=== PATIENT | male | born 1980 | race Caucasian/White ===

== ENCOUNTER 2017-04-06 12:58 | Emergency (ER) | payer OTHER ==
[~2017-04-06] VITALS: Ht 180.3 cm; Wt 86.4 kg
[2017-04-06 13:10] VITALS: BP 115/83; PULSE 120; RESP 16; O2SAT 100
--- NOTE | 2017-04-06 15:13 | ED.REPORT ---
HPI-Psychiatric Illness Date of Service Apr 06, 2017 ED Provider: Stella Herrera MD Patient is a 36 year old male with a hx of narcotic addiction, tremors, polysubstance abuse, and suicide attempts who presents to the ED in company of his sister with paranoia for the past 9 months. He repeatedly states, "everything I do is rigged." He does not have any previous psychiatric diagnosis but has been seen at [facility] and was detained once before. He has seen a psychiatrist in [place] but states "no one is concerned with what I believe, they are just concerned about my anger." He reports feelings of hopelessness and anger. He states, "I get very angry and have a hard time controlling that anger. I believe everyone I know has lied to me my whole life. I believe everyone knows who I am when I go places. I believe I was supposed to be homeless so I could prove I could rise above it." Other statements from the patient include: "My is holding my kids from me and I believe she is the spawn of satin", "they are sadistic and like to see me in pain", "people burn incense by me, people pray by me", "I wanna see why the group captain won't do anything to me", and "No matter what you tell me, I know in my heart that it's real." Per sister, this morning he was tearful and wanting to kill himself. Over the past few months he has also had homicidal ideations and made violent threats to "take out" his family. His daily medications currently prescribed by Dr. Janis Johnson are divalproex 500mg once a night, amitriptyline 25mg once a day, and venlafaxine 225mg once a day. He has stopped taking his medications. He has tried Seroquel (100mg 3x a day) previously. He has been sober for 6 mo from alcohol and drugs. He does not have a good support system. Per sister, the family is living in fear of the patient due to his violent tenancies. Nursing Notes Stated Complaint: THOUGHTS OF HURTING SELF Chief Complaint: Psychiatric Complaint Nursing Notes Reviewed: Yes Allergies: Coded Allergies: tramadol (Verified Adverse Reaction, Severe, seizure, 04/06/17) Scheduled Divalproex (Divalproex) 500 Mg Tablet.dr 500 MG PO BID 1 in am, 2 at night Swallowed whole without chewing to avoid local irritation of the mouth and throat. Quetiapine Fumarate (Seroquel) 300 Mg Tablet 300 MG PO HS Venlafaxine ER (Venlafaxine ER) 225 Mg Tab.er.24 225 MG PO DAILY General Time Seen by MD: 14:01 Chief Complaint Other (Delusions) Hx Obtained From: Patient Onset Occurred: Onset unknown Symptom Duration: Since onset Similar Sx Previous: Yes Risk-Psychiatric Illness Suicide Risk Stratification RF Statements: Risk factors reviewed Review of Systems Constitutional: Denies: Chills, Fever, Malaise, Weakness - generalized Psychiatric: Reports: Agitation, Delusional, Stress, Denies: Hallucinations, auditory, Hallucinations, visual, Homicidal ideation , Suicidal ideation Complete sys rev & neg: except as marked. Physical Exam Initial Vital Signs Vital Signs (First) Date Time Temp Pulse Resp B/P Pulse Ox O2 Delivery O2 Flow Rate FiO2 04/06/17 13:10 37.2 120 16 115/83 100 Room Air Initial VS: Reviewed ENT: Mucous membranes moist, Conjunctiva normal, No scleral icterus Neck: Supple, Non-tender, Full range of motion Respiratory: Breath sounds normal, Clear to auscultation, No respiratory distress Cardiovascular: Regular rate & rhythm, Heart sounds normal, Intact distal pulses Abdomen / GI: Soft, Non-tender, No guarding, No rebound, No distention Skin: Warm, Dry, No cyanosis General/Constitutional: Awake, Alert Neurologic: Oriented X3, No sensory deficits Abnormal Mood/Affect: Positive: Pressured speech Abnormal Thinking / Perception: Positive: Delusions - grandeur Good eye contact Delusions of persecution Interpretation & Diagnostics Lab Results Interpretation Result Diagram: 04/06/17 1525 04/06/17 1525 Test 04/06/17 15:25 White Blood Count 5.3th/mm3 (3.8-10.1) Red Blood Count 4.89mil/mm3 (4.40-5.80) Hemoglobin 13.1g/dL (13.8-17.2) Hematocrit 40.3% (41.0-50.0) Mean Corpuscular Volume 82.4fL (81-100) Mean Corpuscular Hemoglobin 26.8pg (27.0-35.0) Mean Corpuscular Hemoglobin Concent 32.5% (32.0-37.0) Red Cell Distribution Width 13.5% (12.3-15.4) Platelet Count 306bil/L (150-400) Neutrophils (%) (Auto) 63.2% (40-74) Lymphocytes (%) (Auto) 23.0% (14-46) Monocytes (%) (Auto) 6.2% (4-12) Eosinophils (%) (Auto) 6.9% (0-5) Basophils (%) (Auto) 0.7% (0-3) Sodium Level 142mEq/L (134-144) Potassium Level 4.3mEq/L (3.5-5.2) Chloride Level 104mEq/L (97-108) Carbon Dioxide Level 25mmol/L (18-29) Blood Urea Nitrogen 13mg/dL (6-20) Creatinine 0.93mg/dL (0.76-1.27) Estimat Glomerular Filtration Rate 97mL/min (>59) Glucose Level 94mg/dL (60-99) Calcium Level 9.5mg/dL (8.5-10.1) Total Bilirubin 0.2mg/dL (0.0-1.2) Aspartate Amino Transf (AST/SGOT) 23U/L (0-50) Alanine Aminotransferase (ALT/SGPT) 16U/L (0-44) Alkaline Phosphatase 91U/L (25-150) Total Protein 7.6g/dL (6.4-8.4) Albumin 4.4g/dL (3.4-5.0) Thyroid Stimulating Hormone (TSH) 2.180uIU/mL (0.450-4.500) Hold Jacobo Top Tube Received (Received) Re-Eval/Medical Decision Med Decision/Clinical Course Medications and care discussed with Dr. Rufina Phipps See discharge instructions for decisions made with medication changes. All reviewed with Anil. He is more than agreeable to try this. Excited to keep his [facility] appointment tomorrow. Care plan is agreeable for both he and his sister today. Both feel safe to go home. Medications as described in the discharge are given tonight and prescriptions for a month with the refill are given and knowing that he will be following up with [facility] Source of Hx: Old records Re-Evaluation/Progress #1: Time of Eval: 17:25 Re-Evaluation/Progress Note: Pt is rechecked. He remains stable and agrees to wait in the ED until we are able to locate a more permant place for him to be transported to. Re-Evaluation/Progress #2: Time of Eval: 18:03 Re-Evaluation/Progress Note: Pt is rechecked after consult with [facility]. He is agreeable with the plan to discharge him at this time. All questions are addressed. Counseled Regarding: Diagnosis, Lab results, When/why to return to ED Discharge & Departure Impression: Primary Impression: Bipolar disorder with psychotic features Disposition: Home Discharge Condition All VS Reviewed: Yes Condition: Stable Additional Instructions: you have an appt at 3pm at the [facility] tomorrow Call [phone] to find out the name of your provider tomorrow (or just show up at 3pm). After talking with our psychiatrist, Dr Degroot, we are going to make some adjustments to your medications: CHANGE valproic acid, increase to 500mg in the am and 1000mg at night effexor, continue at 225mg daily STOP the amitriptaline START Seroquel 300mg at night Please keep your appointments and make sure you follow through on details you need to keep your insurance. I hope you feel better. Prescriptions have been electronically sent to [facility] in [place] for you Referrals: [facility] Aron Attestation Portions of this note were transcribed by Thu Hill. I, Dr. Herrera personally performed the history, physical exam and medical decision-making; I reviewed and confirmed the accuracy of the information in the transcribed note. Signed by: Aron Maxwell, 04/06/2017 [Time] copies to: [facility] ; [facility] Stella Herrera MD Apr 06, 2017 15:13 TYSON COREA Apr 06, 2017 15:[address] Apr 06, 2017 15:34
[2017-04-06] MEDS ORDERED: OLANZapine Zydis ODT 5 mg Tablet PO ONE (15:20)
[2017-04-06 15:33] LABS: BASOPHILS % (AUTO) 0.7 % (0-3); EOSINOPHILS % (AUTO) 6.9 % (0-5); MONOCYTES % (AUTO) 6.2 % (4-12); Mean Corpuscular Hemoglobin 26.8 pg (27.0-35.0); Mean Corpuscular Volume 82.4 fL (81-100); NEUTROPHILS % (AUTO) 63.2 % (40-74); Platelet Count 306 bil/L (150-400)
[2017-04-06] MEDS ORDERED: QUET300T PO (17:57)
[2017-04-06] MEDS ORDERED: VENL225T3 PO (17:57)
[2017-04-06] MEDS ORDERED: DIVA500T6 PO (17:57)
[2017-04-06 18:16] VITALS: BP 131/62; PULSE 78; RESP 16; O2SAT 97
== END 2017-04-06 18:17 | disposition home or self-care (01) ==
LOC: SED 12:58
DX: F31.5 Bipolar disorder, current episode depressed, severe, with psychotic features (principal); R45.850 Homicidal ideations; Z91.5 Personal history of self-harm; Z88.5 Allergy status to narcotic agent

== ENCOUNTER 2017-04-15 09:44 | Inpatient (IN) | payer MEDICAID, OTHER ==
[~2017-04-15] VITALS: Ht 182.9 cm; Wt 88.6 kg
[~2017-04-15 09:44] MED LIST: DIVA500T6 PO; QUET300T PO; VENL225T3 PO
[2017-04-15 09:50] VITALS: BP 119/80; PULSE 93; RESP 14; O2SAT 100
--- NOTE | 2017-04-15 10:06 | ED.REPORT ---
HPI-Psychiatric Illness Date of Service Apr 15, 2017 ED Provider: Garth Bills DO Patient is a 36 year old male with a hx of narcotic addiction, tremors, polysubstance abuse, and suicide attempts who presents to the ED with his mother stating that the medications he was put on at his ED visit a week ago are not helping and he is now hopeless. He states, "apparently I'm crazy and I' ve lost all hope", "I even think it's very delusional. It's delusions of grandeur, that cars are following me, this has been going on for about 7 months. About 7 months ago my life lucas fell apart", and "I don't believe there is a magic pill that will make me all better so I have no desire to be alive." He reports that he stopped taking Seroquel because it gave his restless legs. He has not been sleeping the last 2 days. He denies active suicidal ideation, homicidal ideation, or any other symptoms. He was seen 9 days ago in the ED and diagnosed with bipolar disorder with psychotic features. His medications were changed as follows: Increase Valproic acid to 500mg am and 1000mg at night, continue Effexor 225mg daily, stop amitriptyline, and start Seroquel 300mg at night. Nursing Notes Stated Complaint: MENTAL HEALTH EVAL Chief Complaint: Psychiatric Complaint Nursing Notes Reviewed: Yes Allergies: Coded Allergies: tramadol (Verified Adverse Reaction, Severe, seizure, 04/06/17) Scheduled Divalproex (Divalproex) 500 Mg Tablet.dr 500 MG PO BID 1 in am, 2 at night Swallowed whole without chewing to avoid local irritation of the mouth and throat. Quetiapine Fumarate (Seroquel) 300 Mg Tablet 300 MG PO HS Venlafaxine ER (Venlafaxine ER) 225 Mg Tab.er.24 225 MG PO DAILY General Time Seen by MD: 09:59 Chief Complaint Suicidal ideation Hx Obtained From: Patient Arrived By: Walk-in Onset Occurred: More than a week ago... Severity: Current: No pain currently Severity: Maximum: No pain Recent Healthcare: Recent doctor visit Similar Sx Previous: Yes Risk-Psychiatric Illness Suicide Risk Stratification Suicide Risk Factors - Adult: : Access to firearms: Previous attempt: Substance abuse RF Statements: Risk factors reviewed Past Medical History Past Medical History Anrcotic addiciton tremors polysubstance abuse suicide attempts Past Surgical History 2 hernia repairs brain tumor removal Smoking History Unknown if Ever Smoker Social History Alcohol Use: In recovery Drug Use: In recovery Other Social History: Smokeless tobacco, Poor social support Ambulatory Status Independent Review of Systems Psychiatric: Reports: Delusional, Depression (and hopelessness ), Insomnia, Denies: Homicidal ideation, Suicidal ideation Complete sys rev & neg: except as marked. Physical Exam Initial Vital Signs Vital Signs (First) Date Time Temp Pulse Resp B/P Pulse Ox O2 Delivery O2 Flow Rate FiO2 04/15/17 09:50 36.9 93 14 119/80 100 Room Air Initial VS: Reviewed, Vital signs normal Head / Eyes: Atraumatic, Normocephalic Neck: Full range of motion Respiratory: Breath sounds normal, Clear to auscultation, No respiratory distress Cardiovascular: Regular rate & rhythm, Heart sounds normal, Intact distal pulses Abdomen / GI: Soft, Non-tender Skin: Warm, Dry General/Constitutional: Awake, Alert, No acute distress Neurologic: Oriented X3, Speech NL Abnormal Mood/Affect: Positive: Pressured speech Abnormal Thinking / Perception: Positive: Delusions - grandeur Good eye contact anhedonia, hopeless Interpretation & Diagnostics Lab Results Interpretation Result Diagram: 04/15/17 1030 04/15/17 1030 Test 04/15/17 10:30 White Blood Count 6.8th/mm3 (3.8-10.1) Red Blood Count 4.98mil/mm3 (4.40-5.80) Hemoglobin 13.1g/dL (13.8-17.2) Hematocrit 40.4% (41.0-50.0) Mean Corpuscular Volume 81.1fL (81-100) Mean Corpuscular Hemoglobin 26.3pg (27.0-35.0) Mean Corpuscular Hemoglobin Concent 32.4% (32.0-37.0) Red Cell Distribution Width 14.3% (12.3-15.4) Platelet Count 253bil/L (150-400) Neutrophils (%) (Auto) 75.8% (40-74) Lymphocytes (%) (Auto) 12.4% (14-46) Monocytes (%) (Auto) 7.5% (4-12) Eosinophils (%) (Auto) 4.0% (0-5) Basophils (%) (Auto) 0.3% (0-3) Sodium Level 141mEq/L (134-144) Potassium Level 4.0mEq/L (3.5-5.2) Chloride Level 101mEq/L (97-108) Carbon Dioxide Level 25mmol/L (18-29) Blood Urea Nitrogen 8mg/dL (6-20) Creatinine 1.03mg/dL (0.76-1.27) Estimat Glomerular Filtration Rate 86mL/min (>59) Glucose Level 110mg/dL (60-99) Calcium Level 9.4mg/dL (8.5-10.1) Total Bilirubin 0.2mg/dL (0.0-1.2) Aspartate Amino Transf (AST/SGOT) 24U/L (0-50) Alanine Aminotransferase (ALT/SGPT) 15U/L (0-44) Alkaline Phosphatase 69U/L (25-150) Total Protein 7.3g/dL (6.4-8.4) Albumin 4.4g/dL (3.4-5.0) Thyroid Stimulating Hormone (TSH) 2.450uIU/mL (0.450-4.500) Hold Jacobo Top Tube Received (Received) Re-Eval/Medical Decision Med Decision/Clinical Course Patient is a good candidate for voluntary admission. Currently awaiting placement. Consultation : Consulted With: cathead worker Call Returned at: 13:08 Can Maker: Will see patient, Agrees with eval, Agrees with plan Note: Discussed pt's case with social work. Agrees hospitalization is appropriate. Will look for bed for pt. Discharge & Departure Shift Change Sign-Out Patient Care Transferred: Yes Discussed Complaint(s): Yes Additonal Information: Transfer of care to Dr. Del Valle at 1500 Impression: Primary Impression: Psychosis Psychosis type: unspecified psychosis type Qualified Code: F29 - Unspecified psychosis not due to a substance or known physiological condition Discharge Condition All VS Reviewed: Yes Condition: Stable Referrals: OTHER,PHYSICIAN (PCP) (Family) Care Transferred to: Dr. Del Valle Care Transferred at: 15:00 Scribe Attestation Portions of this note were transcribed by Tyson Corea. I, Dr. Bills personally performed the history, physical exam and medical decision-making; I reviewed and confirmed the accuracy of the information in the transcribed note. Signed by: Aron Mathis, 04/15/17 Garth Bills DO Apr 15, 2017 10:06 TYSON COREA Apr 15, 2017 10:17
[2017-04-15 10:41] LABS: BASOPHILS % (AUTO) 0.3 % (0-3); MONOCYTES % (AUTO) 7.5 % (4-12); Mean Corpuscular Hemoglobin 26.3 pg (27.0-35.0); Mean Corpuscular Volume 81.1 fL (81-100); NEUTROPHILS % (AUTO) 75.8 % (40-74); Platelet Count 253 bil/L (150-400)
[2017-04-15 13:53] VITALS: BP 117/86; PULSE 120
[2017-04-15 18:06] VITALS: BP 116/79; PULSE 90; RESP 18; O2SAT 100
[2017-04-15 22:43] VITALS: BP 100/68; PULSE 85; RESP 16; O2SAT 98
[2017-04-15 23:07] VITALS: BP 100/68; PULSE 85; RESP 16; O2SAT 98
[2017-04-16] MEDS ORDERED: Magnesium Hydroxide 10 mL Oral Concentration PO PRN (00:15)
[2017-04-16] MEDS ORDERED: Alum-Mag Hydrox-Simeth 30 mL Suspension PO PRN (00:15)
[2017-04-16] MEDS ORDERED: Benzocaine-Menthol Lozenge 2/Pkg PO PRN (00:15)
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
[2017-04-16 01:56] VITALS: BP 100/66; PULSE 83; RESP 16
--- NOTE | 2017-04-16 14:06 | HP ---
[address] [address] HISTORY AND PHYSICAL PATIENT: CHELSI MCMAHON : 1980 MR#: [id number] ADMIT: 04/15/2017 JOB ID: [id number] IDENTIFICATION OF PATIENT: The patient is a 36-year-old male who reportedly was admitted on a voluntary basis through the emergency department after significant concern of increasing difficulties with delusions, paranoia, and significant concern of recent emotional breakdown. The patient reportedly identified significant thoughts of suicide with a plan of purchasing a weapon. CHIEF COMPLAINT: "I don't think that I could never do it, I don't want to do anything that would hurt my kids or myself." HISTORY OF PRESENT ILLNESS: As stated above, the patient is a 36-year-old male who reportedly has been seen x2 in the emergency department within the past week. The patient initially presented with significant concerns of possible features of bipolar disorder including evidence of insomnia, racing thoughts, delusions of grandeur, and significant difficulties with rapid mood swings. There was open identification of previous hospitalization at [facility] for less than 24 hours with previous detainment. The patient reports that it essentially was hell and that he was glad that he was discharged quickly. He does report that recently through the emergency department interventions provided by Dr. Louis and Dr. Bills consultation was obtained by Dr. Degroot with consideration of introductions of Depakote currently dispensed at 500 mg q.a.m. and 1000 mg q.h.s. He reportedly had also been prescribed doses of Effexor prior at 225 mg daily by his family practitioner and is in the process of taper with the intent to discontinue. He was also previously on doses of amitriptyline which has been discontinued as well. Dr. Degroot had recommended within the past 48 hours introduction of Seroquel due to significant difficulties with insomnia, however the patient states that he elected to discontinue due to restless legs. In reviewing his current status he indicates that he is on a waiting list to be seen at [facility] in [place] and has seen a therapist x2. He reports that he is questioning the diagnosis of bipolar disorder and stated that he believed that may be a potential but he is concerned about the diagnosis. He reports no previous history of ben, no evidence of prolonged mood swing variation, and indicates that much of his anger and difficulties with low mood at this time are related to his current life predicaments. He indicates that he has lost his job, his previous vehicle, and also is undergoing a process of separation and divorce. He indicates that he does have an apartment dwelling at this time and that his rent has been paid very by his own parents, who have financial capability. He indicates that unfortunately they are drawing limits due to his significant history of difficulties with substance abuse. The patient readily identified that he is clean and sober for approximately seven months with prior history of usage of methamphetamine. The patient states that he had used daily for about a month within the past eight months after feeling overwhelmed with life situations. He indicated that his was previously using substances and that he had taken care of the three- and [id number] and moved out of the home environment at that time. He indicates that he essentially feels that he became overwhelmed with the responsibility and began using substances on himself. He also identifies a significant previous history of narcotic addiction after he underwent a brain surgery with removal of a tumor, a melangioma, and stated that he developed difficulties with chronic pain and was seen through a pain clinic in [place]. He indicates that at one point he was transitioned onto doses of Suboxone for approximately five years but states that he essentially was abusing substances and the prescriptions noted. He gave several references of a physician that is no longer allowed to practice in the [facility] who evidently would call the patient on his personal home phone at 2:00 in the morning just to check in on him. He denies any previous enrollment in chemical dependency treatment and indicates that he tends to rely upon his own deloris and gnosticism, which is a methodist Confucianism based gnosticism, [facility] in [place]. He indicated he indicated further that he has never gone through deloris based treatment through [facility]. In reviewing his previous history of substances he did readily identify that as a youth he was using substances including marijuana, mescaline, LSD, cocaine, and alcohol. He reports that he essentially discontinued usage of substances and later transitioned onto the prescription agents when he was connected with the Pain Clinic. PAST MEDICAL HISTORY: SUBSTANTIAL FOR ALLERGIES TO TRAMADOL. CURRENT MEDICATIONS: Include Depakote 500 mg q.a.m. and 1000 mg q.h.s., Effexor 225 mg daily. PAST MEDICAL HISTORY: He denies any recent surgeries, fracture, or head trauma. Other medical history was reviewed through the ER. I agree with findings. PAST PSYCHIATRIC HISTORY: Limited to the above. He is on a waiting list to be seen by a prescriber at [facility]. SOCIAL HISTORY: Currently the patient lives in his own apartment in [place]. He is in the process of separation and divorce to be finalized at the end of this month. He has two children, ages three and one. He is currently unemployed. He reportedly graduated from high school in [place] and attended community college with no degree. FAMILY HISTORY: Deferred. DEVELOPMENTAL HISTORY: As noted above. MENTAL STATUS EXAMINATION: General appearance: The patient is cooperative, polite. He is very dramatic in his presentation. He smiles appropriately throughout the course of conversation, becomes tearful in discussing his current process of life. His speech is mildly pressured. His mood is depressed, with anxious features. His affect is elevated. His thought process shows evidence of some racing thoughts, loose and disconnected thinking at times, but redirectable. His thought content: He denied any evidence of current suicidal ideation, but admitted prior to hospitalization he was having thoughts about cashing in his check for unemployment and purchasing a gun. He denies any homicidal variant. There was no evidence of active hallucinations or delusions. His mental grasp: He was alert. Oriented to person, place, and time. His attention and concentration intact. Insight and judgment are fair. He does have evidence of paranoia and some concerns of elevated grandiose presentation. IMPRESSION: Palco I: 1. Mood disorder, not otherwise specified. 2. Methamphetamine use disorder, in remission. 3. Generalized anxiety disorder. 4. Rule out major depressive disorder, recurrent type, nonpsychotic. Palco II: Cluster A personality features. Palco III: 1. History of melangioma 2. History of chronic pain. 3. History of osteoporosis with repeated treatment and resolution. Palco IV: Stressors are noted for current pending divorce, unemployment, transition of life. Palco V: Global Assessment of Functioning of current 25. PLAN: 1. Recommendations for continuation of hospitalization. The patient was informed that if he were to attempt to leave the hospital DCRs would be notified and we would more than likely have to pursue CARON status. 2. Recommendations for taper and discontinuation of Effexor by dropping to 75 mg daily for the next five days and then discontinue thereafter. 3. Continuation of Depakote 500 mg q.a.m. and 1000 mg q.h.s. with Depakote level to be drawn tomorrow morning. 4. Recommendations for introduction of Vistaril 50 mg q.4 h. p.r.n. for anxiety. 5. Consideration of usage of Buspar. 6. Continuation of trazodone 100 mg q.h.s. for sleep. 7. Aftercare appointments to be including individual therapy, medication management, through [facility]. MTDD
[2017-04-16] MEDS ORDERED: Venlafaxine XR 75 mg ER24 Capsule PO ONE (14:30)
--- NOTE | 2017-04-16 14:44 | NUR ---
Nursing Note [id number] Mood S/O: Pt reports he is feeling better since talking with psychiatrist. Pt states he is nervous about going to a 1 year chemical dependency treatment program as suggested by doctor, but he has hope that he will be able to get his family back if he goes through treatment. Pt reports his mood is "better than it was a week ago." He states he is a "dry drunk." He denies suicidal ideation. A: Pt has good insight into illness & is will to work & change behavior. P: Provide supportive environment. Monitor medications & effects.
[2017-04-16 16:23] VITALS: BP 131/76; PULSE 81; RESP 20
--- NOTE | 2017-04-16 17:44 | NUR ---
[facility] Day Shift Pt maintained behavioral control throughout the shift. Pt affect appears mostly euthymic, occasionally anxious. Pt spends most of the shift interacting with peers in the dining room and engaging in unit activities. Pt is pleasant with staff and peers when active on the unit. Pt expresses some restlessness in the AM, though it appears to have dissipated in the afternoon/evening. Pt attended community meeting and participated lightly in unit activities throughout the shift. Pt attended all meals. Pt declined breakfast, and ate approx 100% of both lunch and dinner.
--- NOTE | 2017-04-16 19:02 | NUR ---
Obs Dayshift Pt is calm, co-operative, participating, and engaging well w/ peers and staff. Pt appears anxious at times, states that he needs more to do or he might crawl out of his skin. Pt has engaged in many activities on the unit to keep himself busy or occupied. Throwing the ball on the patio w/ peers, talking w/ peers, ping pong, wii, art, etc. Pt worked on his paperwork for treatment, had a visit from his mother and they sat together and went over the papers. Positive, forward thinking. Good ADL's, Good meals
[2017-04-16] MEDS: Divalproex (QD) 500 mg ER24 Tablet PO SCH (21:14)
--- NOTE | 2017-04-16 21:28 | NUR ---
behavior: pt. stated "I lost my , my job, my kids, and my house". Mentioned pt. going to rehab, pt stated "I tried to fix it myself, but I think this time its bigger than me." pt's mood elevated.
--- NOTE | 2017-04-17 05:23 | NUR ---
nursing, nights, 11-7 s/o- has appeared to sleep after 2300 during q 15 minute assessments. a- no apparent distress. p- monitor behavior/emotional state, quality, times and amount of sleep, use and effect of medication. hiram
[2017-04-17] MEDS: Venlafaxine XR 75 mg ER24 Capsule PO SCH (08:02)
[2017-04-17 10:00] VITALS: BP 113/75; PULSE 96; RESP 16
--- NOTE | 2017-04-17 13:36 | PROG NOTE ---
[address] [address] PROGRESS NOTE PATIENT: CHELSI MCMAHON : 1980 MR#: [id number] ADMIT: 04/15/2017 JOB ID: [id number] DATE: 04/17/2017 CHIEF COMPLAINT: "I am going to do this." This per patient report. HISTORY OF PRESENT ILLNESS: As stated above, the patient met with myself and the medical student to review his current status. He indicates that last evening, after meeting with myself and filling out applications for [facility], he was much more optimistic and shared with his mother about the intent. He indicates that he realizes that he has been struggling with addiction much of his life, beginning at the age of 11. He reflected with myself yesterday afternoon that he had been treated at [facility] in his late teens for marijuana and alcohol abuse, and later as a young adult attended [facility]. The patient identified that he has not been through treatment since that time and has battled various addictions throughout the years. He openly identified that he has been sober for approximately seven months for methamphetamine, but indicates that he continues to struggle with thoughts and cravings. He identifies that he realizes that his addictions have been controlling much of his life choices and that he is ready and willing to look at opportunities through [employer]. In meeting with myself he appeared to be much more stable with his mood. He identified that he did sleep well last evening with the administration of Depakote 1500 mg q.h.s. and trazodone 100 mg q.h.s. He indicated that he did try some of the Vistaril for factors of anxiety and stated that it seemed help. MENTAL STATUS EXAMINATION: He was bright, cooperative, interactive. He maintained good eye contact throughout. His speech was of normal tone, frequency, and volume. His mood is definitely improved, with decreased manifestations of anxiety and depression. His affect is controllable and congruent. His thought process showed no evidence of racing thoughts, flight of ideas, loose or disconnected thinking. Thought content: He denied any evidence of current suicidal or homicidal ideation. No evidence of active hallucinations, delusions. He was alert, oriented to time and place. Attention and concentration improved. Insight and judgment are fair. PHYSICAL EXAMINATION: Vital signs of current: Temperature is 36.4, pulse 81, respirations 20, BP 131/76. MEDICATION REVIEW: Includes Effexor 75 mg daily with tapering doses with intent to discontinue on April 22, trazodone 100 mg q.h.s., and Depakote ER 1500 mg q.h.s. Also Vistaril 50 mg t.i.d. p.r.n. ASSESSMENT: [place] I: 1. Mood disorder, not otherwise specified. 2. Generalized anxiety disorder. 3. Methamphetamine use disorder, in remission. 4. Rule out major depressive disorder, recurrent type, nonpsychotic. [place] II: Cluster A personality features. [place] III: 1. History of melangioma. 2. History of chronic pain. 3. History of osteoporosis with treatment and resolution. [place] IV: Stressors are noted for current pending divorce, unemployment, transition of life, chronic substance use. [place] V: Global Assessment of Functioning of current 30. PLAN: 1. Recommendations for continuation of all medications noted. 2. Depakote level to be drawn tomorrow morning. 3. Continuation of pursuit of chemical dependency treatment. Applications will be faxed to [facility] today by the caser shoe [employer] involved. MIREILLE
--- NOTE | 2017-04-17 14:11 | NUR ---
Nursing Note [id number] Behavior, Mood S/O: Pt out in milieu on unit. Pleasant & cooperative with cares & medications. Pt rates mood at a "8" on a scale of 1-10/10 the best. Pt reports his mood is better now that he has "a plan." Pt reports anxiety is increased d/t needing to call unemployment prior to 1200 tomorrow. Pt has good appetite. A: Pt has good insight into illness. P: Provide supportive environment. Monitor medications & effects.
--- NOTE | 2017-04-17 16:34 | NUR ---
Nursing note Pt. is out in milleu with other patients. He is pleasant, cooperative and respectful. Per [facility] pt. initiated plan to contact unemployment. Pt. denies needs at this time.
--- NOTE | 2017-04-17 17:40 | NUR ---
[facility] Day Shift Pt maintained behavioral control throughout the shift. Pt affect appears mostly euthymic. Pt spends most of the shift interacting with peers in the dining room and engaging in unit activities. Pt is pleasant with staff and peers when active on the unit. Pt participated lightly in unit activities throughout the shift. Pt attended all meals and ate approx 80-100% of all meals.
[2017-04-17] MEDS: Divalproex (QD) 500 mg ER24 Tablet PO SCH (21:07)
--- NOTE | 2017-04-18 04:26 | NUR ---
NOC PT is a very pleasant gentleman who denies any SI this night. PT's biggest concern was regarding the frequency of nicorette lozenges. PT chews "all day" is having a lot of nicotine w.d s/s. PT displays essential tremors which he states is baseline and that is entire family has them. PT did not take any vistaril because he believed it caused him to feel very hung over in the am. PT did take trazadone at HS and has been sleeping well so far t/o the night. Plan is to continue with current POC and increase depakote accordingly. Will CTM for any A/R.
[2017-04-18] MEDS: Venlafaxine XR 75 mg ER24 Capsule PO SCH (08:21)
[2017-04-18 10:05] VITALS: BP 111/77; PULSE 95; RESP 16
--- NOTE | 2017-04-18 10:25 | PCM.DIMED ---
Discharge Instructions Date of Service Apr 18, 2017 Dates of Hospitalization Apr 15, 2017 at 22:50 Discharge Diagnosis Discharge Diagnosis Mood DO NOS Generalized Anxiety Polysubstance Use DO Diet Discharge Diet: No restrictions Activity Discharge Activity: No restrictions Jony Hopkins DO Apr 18, 2017 10:25
[2017-04-18] MEDS ORDERED: DIVA500T14 PO (10:30)
[2017-04-18] MEDS ORDERED: VENL75CA PO (10:30)
--- NOTE | 2017-04-18 11:52 | NUR ---
Broach Setter The patient denies any SI at this time. Outside appointments were made at [facility] in [place]. He will be discharged to family.
--- NOTE | 2017-04-18 14:54 | NUR ---
Nursing Discharge Note: Patient cooperative with discharge process. Acknowledges understanding of d/c instructions and has a copy with them upon leaving unit at 1255. Belongings accounted for and with patient. Prescriptions faxed to patients pharmacy at [facility]. Patient denies harmful thoughts and hallucinations at this time.
--- NOTE | 2017-04-18 19:10 | DIS ---
[address] [address] DISCHARGE SUMMARY PATIENT: CHELSI MCMAHON : 1980 MR#: [id number] ADMIT: 04/15/2017 JOB ID: [id number] DIS: 04/18/2017 ADMITTING DIAGNOSES: Include: [place] I: 1. Mood disorder, not otherwise specified. 2. Methamphetamine use disorder, in remission. 3. Generalized anxiety disorder. 4. Rule out major depressive disorder, recurrent type, nonpsychotic. [place] II: Cluster A personality features. [place] III: 1. History of melangioma. 2. History of chronic pain. 3. History of osteoporosis with treatment and resolution. [place] IV: Stressors are noted for current pending divorce, unemployment, transition of life. [place] V: Global Assessment of Functioning of current 25. DISCHARGE DIAGNOSES: Include: [place] I: 1. Major depressive disorder, recurrent type, nonpsychotic. 2. Generalized anxiety disorder. 3. Methamphetamine use disorder, in remission. [place] II: Deferred. [place] III: 1. History of melangioma. 2. History of chronic pain. 3. History of osteoporosis with treatment and resolution. [place] IV: Stressors were noted, identified as above (current pending divorce, unemployment, transition of life). [place] V: Global Assessment of Functioning of current 40. REASON FOR ADMISSION/HOSPITAL COURSE: The patient was a 36-year-old male who was admitted through the emergency department with two separate visits within the past week. During the course of hospitalization the patient's history was reviewed with open identification of difficulties with insomnia, racing thoughts, some concerns about rapid mood swings. His history was noted with a positive history of a previous admission to [facility] for less than 24 hours with noted CARON detainment and release. The patient reportedly had been initiated on doses of Depakote dispensed at 500 mg q.a.m. and 1000 mg q.h.s., and also Effexor 225 mg daily. During the course of hospitalization election to discontinue Effexor followed by tapering doses to 75 mg daily for five days then discontinue, and also a change of format of Depakote to 1500 mg ER q.h.s. due to significant difficulties with insomnia. In addition, discussion was held with the patient about his ongoing patterns of addiction and drug abuse dating back to his middle adolescence. He openly identified significant history of involvement with chemical dependency treatment at [facility] in his late teens, and later at [facility] in his 20s after repeated DUIs. He openly identified continuation of difficulties with cravings despite his sobriety of seven months and concerns that he was ultimately going to relapse due to his current life predicament of loss of family, a pending divorce, loss of employment. The patient was open to referrals to [facility] and referrals were sent accordingly. Throughout hospital course, patient showed significant gains of insight into alternative coping. He denied any evidence of further suicidal ideation, intent, or plan, and was agreeable to continue with outpatient care providers at [facility] in [place] for both medication management and individual therapy during the interim of transition onto [facility]. CONDITION AT THE TIME OF DISCHARGE: Patient's mood and affect were stable. He denied any evidence of current suicidal, homicidal ideation. No evidence of active hallucinations, delusions. He was alert, oriented to time and place. His attention and concentration intact. Insight and judgment were fair. LABORATORY DATA: Collected included an updated Depakote level which was noted at 83 on the day of discharge. His CBC, TSH, and metabolic panel at the point of admission were all within normal limits. DISCHARGE PLAN: Includes: 1. Follow up with care providers at [facility] on the April 23 at 10:30 a.m. for intake and coordination of both case management, individual therapy, and medication management. 2. Continuation of pursuit of chemical dependency treatment through [facility]. Applications have been sent and the patient will call accordingly for updates for admission. 3. Continuation of Depakote 1500 mg q.h.s. ER, one month supply, no refills. Reason for usage: Mood stabilizer. 4. Continuation of Effexor 75 mg XR for the next three days, then discontinue thereafter. Number three, no refills. Reason for usage antidepressant. MTDD
== END 2017-04-18 12:55 | disposition home or self-care (01) | DRG 885 ==
LOC: SED 09:44 → MHC 22:50
PROVIDERS: ADMIT Psychiatry & Neurology Psychiatry; ATTEND Psychiatry & Neurology Psychiatry
DX: F33.9 Major depressive disorder, recurrent, unspecified (principal); R45.851 Suicidal ideations; F41.1 Generalized anxiety disorder; F15.90 Other stimulant use, unspecified, uncomplicated